=== PATIENT | male | born 1965 | race Caucasian/White ===

== ENCOUNTER 2016-10-31 09:31 | Emergency (ER) | payer MEDICARE ==
[~2016-10-31] VITALS: Wt 81.0 kg
[~2016-10-31 09:31] MED LIST: BACTDS PO; BEN50 PO; CEPH-443 PO; DEC4 PO; EPIN0.3P4 INJ; PRED20TA PO; RANI150T5 PO
[2016-10-31] MEDS ORDERED: KETOROLAC 30 MG INJ IM STA (10:41)
--- NOTE | 2016-10-31 10:59 | ERD ---
ER Documentation Chief Complaint Date/Time DATE: 10/31/16 TIME: 10:55 Chief Complaint non traumatic left side facial swelling since last night HPI Patient is a 51-year-old male with no significant medical history presenting to the emergency department for swelling to the left lower side of his face since last night, now worsening. The patient has mild associated 6 out of 10 pain localized to the area. The patient does have history of dental caries. The patient smokes 1 pack per day. The patient denies any fever, chills, nausea, vomiting, diarrhea. ROS All systems reviewed and are negative except as per history of present illness. Medications Home Meds Active Scripts Epinephrine (Epipen 2-Cristofer) 0.3 Mg/0.3 Ml Pen.injctr, 1 EA INJ ONCE Y for ALLERGIC REACTION, #1 EA Prov:ZANE CHANG PA-C 03/15/16 Dexamethasone* (Decadron*) 4 Mg Tab, 4 MG PO TID, #12 TAB Prov:ZANE CHANG PA-C 03/15/16 Ranitidine Hcl* (Ranitidine Hcl*) 150 Mg Tablet, 150 MG PO Q12, #8 TAB Prov:ZANE CHANG PA-C 03/15/16 Diphenhydramine Hcl* (Benadryl*) 50 Mg Cap, 50 MG PO Q6 Y for ITCHING, #20 CAP Prov:ZANE CHANG PA-C 03/15/16 Cephalexin* (Keflex*) 500 Mg Capsule, 500 MG PO QID for 7 Days, CAP Prov:ZANE CHANG PA-C 03/09/16 Sulfamethoxazole-Trimethoprim* (Bactrim* DS) 800-160 Mg Tab, 1 TAB PO BID for 7 Days, TAB Prov:ZANE CHANG PA-C 03/09/16 Prednisone* (Prednisone*) 20 Mg Tab, 40 MG PO DAILY for 4 Days, TAB Prov:ZANE CHANG PA-C 03/09/16 Allergies Allergies: Coded Allergies: No Known Allergy (Unverified , 03/09/16) PMhx/Soc Medical and Surgical Hx: pt denies Medical Hx, pt denies Surgical Hx Hx Alcohol Use: No Hx Substance Use: Yes (MARIJUANA DAILY) Hx Tobacco Use: Yes Smoking Status: Current every day smoker FmHx Noncontributory for chief complaint Physical Exam Vitals Vital Signs Date Time Temp Pulse Resp B/P Pulse Ox O2 Delivery O2 Flow Rate FiO2 10/31/16 09:35 98.1 68 20 141/91 95 Physical Exam INITIAL VITAL SIGNS: Reviewed by me. GENERAL: Alert and interactive. No acute distress. HEAD: There is mild soft tissue swelling to the left jawline with no erythema or warmth. MOUTH: Poor dentition, multiple dental caries. Mild signs of gingivitis. There are no missing teeth or signs of serious infection EYES: EOMI. No scleral icterus. No conjunctival injection. ENT: Moist mucosa. NECK: Supple. Full range of motion. RESPIRATORY: Normal respiratory effort. Clear breath sounds bilaterally. No wheezing, rales, or rhonchi. CV: Regular rate and rhythm. Normal S1 S2. No S3 or S4. No murmurs. ABDOMEN: Soft, non-distended, non-tender. No guarding. No rebound. No masses. EXTREMITIES: No deformity. SKIN: Warm and dry. NEUROLOGIC: Alert and oriented x 4. Speech is normal. Moves all extremities equally. No motor or sensory deficits noted. Results 24 hrs Current Medications Medications (Trade) Dose Ordered Sig/Renita Route PRN Reason Start Time Stop Time Status Last Admin Dose Admin Ketorolac Tromethamine (Toradol) 30 mg ONCE STAT IM 10/31/16 10:41 10/31/16 10:42 DC 10/31/16 10:45 Procedures/MDM 51-year-old male presenting to the emergency department for acute swelling of the left lower side of the face with associated 6 out of 10 pain. On physical examination there is some mild facial swelling to the left jaw area with no warmth or erythema. I believe the patient has gingivitis with possible early dental abscess. I believe the patient is stable for discharge with outpatient antibiotics. He was given IM Toradol in the department with relief of his symptoms. He will be discharged home with naproxen and Augmentin for acute pain relief and infection prophylaxis. The patient agrees with the plan to discharge home and all questions and concerns of been addressed. Departure Diagnosis: Primary Impression: Toothache Additional Impression: Swelling Condition: Stable Patient Instructions: Dental Pain Additional Instructions: Follow-up with your primary care physician within 1 week. Return to the emergency department immediately should you have any new or worsening symptoms, uncontrolled fevers, or other unexplained symptoms. Take all medications as directed. GRETTA DREW PA-C Oct 31, 2016 10:59
[2016-10-31] MEDS ORDERED: NAPR-260 PO (11:00)
[2016-10-31] MEDS ORDERED: AMOX1TAB10 PO (11:00)
== END 2016-10-31 11:06 | disposition home or self-care (01) ==
LOC: FTE 09:31
DX: K08.89 Other specified disorders of teeth and supporting structures (principal); F17.210 Nicotine dependence, cigarettes, uncomplicated
CPT/HCPCS: 96372; 99284; J1885